=== PATIENT | male | born 1990 | race Caucasian/White ===

== ENCOUNTER 2017-05-15 14:24 | Emergency (ER) | payer OTHER ==
[~2017-05-15] VITALS: Ht 182.9 cm; Wt 109.1 kg
[2017-05-15 14:46] VITALS: BP 160/91; PULSE 89; RESP 12; O2SAT 100
--- NOTE | 2017-05-15 14:59 | ED.REPORT ---
HPI-Chest Pain Under 40 Date of Service May 15, 2017 ED Provider: Dr. Zapien Pt is a 27 year old male with a hx of HTN presenting to the ED complaining of sharp intermittent chest pain which changes when he sits in different positions. He states that he has a left shoulder chronic injury, and was kayaking and fishing yesterday so he was casting a lot which aggravated it. He states that he did not wake up with chest pain, but after breakfast when he was sitting up he began having the chest pain and felt a twinge in his shoulder. Pain is not exacerbated by walking around. He woke up sleeping on his hands, at the same spot that the chest pain later developed. Denies any other symptoms at this time. Nursing Notes Stated Complaint: CP Chief Complaint: Chest Pain Nursing Notes Reviewed: Yes Allergies: Coded Allergies: lorazepam (Verified Adverse Reaction, Severe, agitated, "made me freak out and thought I was dying", 08/12/16) General Time Seen by MD: 14:58 Chief Complaint Chest pain Hx Obtained From: Patient Arrived By: Walk-in Sudden in Onset?: No Onset Occurred: 1 - 4 hours ago Symptom Duration: Since onset Location: : Chest left Quality: Painful, Sharp Severity: Current: Mild Severity: Maximum: Mild Recent Healthcare: No recent doctor visit, No recent hospitalization Similar Sx Previous: No Past Medical History Past Medical History anxiety Reports: Hypertension Past Surgical History open appendectomy Family History Family history of PA's at a young age Smoking History Never Smoker Social History Alcohol Use: Denies alcohol use Drug Use: Denies drug use Other Social History: Good social support Ambulatory Status Independent Review of Systems Respiratory: Denies: Dyspnea on exertion, Shortness of breath Cardiovascular: Reports: Chest pain Musculoskeletal: Reports: Joint pain (Left shoulder) Complete sys rev & neg: except as marked. Physical Exam Initial Vital Signs Vital Signs (First) Date Time Temp Pulse Resp B/P Pulse Ox O2 Delivery O2 Flow Rate FiO2 05/15/17 14:46 36.9 89 12 160/91 100 Room Air Initial VS: Reviewed Head / Eyes: Atraumatic, Normocephalic, PERRL ENT: Mucous membranes moist, Conjunctiva normal, No scleral icterus Neck: Supple, Non-tender, Full range of motion Abdomen / GI: Soft, Non-tender, No guarding, No rebound, No distention Skin: Warm, Dry, No cyanosis Neurologic: Alert, Oriented, Nonfocal Psychiatric: Mood/affect normal, Behavior normal, Normal thought content General/Constitutional: Awake, Alert, No acute distress, Well appearing Respiratory / Chest: Atraumatic, Breath sounds NL, Breath sounds = bilat, No respiratory distress Focal left chest wall tenderness. Reproducible chest pain with palpation and movement with left shoulder. Cardiovascular: Heart rate NL, Regular rhythm, Heart sounds NL Upper Extremity / MS: No deformity, Neurologic intact, Vascular intact Audible clicking with ROM of left shoulder Interpretation & Diagnostics ECG Interpretation ECG Interpretation: Sinus tachycardia at 103. No ST changes. Time: 15:06 Interpreted by: ED physician X-Ray Chest Interpretation Chest Xray Interpretation: IMPRESSION: No acute cardiopulmonary disease. Dictated by: Refugio Hernandez M.D. on 05/15/2017 at 14:37 View: Portable, 1 view Interpretation / Wet Read by: Interpret - Radiologist Re-Eval/Medical Decision Med Decision/Clinical Course Focal reproducible chest wall pain with a reassuring EKG and chest x-ray. Discussed with the patient. I offered lab tests, the patient declined. Return and follow-up precautions given Re-Evaluation/Progress : Time of Eval: 15:37 Patient Status: Condition improved Re-Evaluation/Progress Note: Pt declines labs. Discussed plan for discharge. Pt understands and agrees. Counseled Regarding: Diagnosis, Lab results, Need for follow-up, When/why to return to ED Discharge & Departure Primary Impression: Chest pain Chest pain type: unspecified Qualified Code: R07.9 - Chest pain, unspecified Disposition: Home Discharge Condition All VS Reviewed: Yes Condition: Improved Patient Instructions: Angina (ED) Additional Instructions: Your symptoms unrelated to injuring your shoulder and sleeping on your hands. Use Tylenol and ibuprofen as needed for symptoms. If you develop persistent chest pain with shortness of breath or other signs or symptoms of heart attack he should return to the ER. Referrals: Rudolph Tovar MD (PCP) Scribe Attestation Portions of this note were transcribed by Libra Cain. I, Dr. Zapien personally performed the history, physical exam and medical decision-making; I reviewed and confirmed the accuracy of the information in the transcribed note. Signed by: Wendy Mccollum, 05/15/17 at 1609. copies to: Rudolph Tovar MD, Timothy S DO May 15, 2017 14:58 LIBRA CIAN May 15, 2017 15:34
--- NOTE | 2017-05-15 15:39 | DRSVH ---
PROCEDURE: X-RAY CHEST ONE VIEW, PORTABLE ([id number]) INDICATIONS: 27 year-old male with chest pain. TECHNIQUE: One view of the chest was acquired. COMPARISON: [facility], CR, XR CHEST 1VW (PORTABLE), 08/12/2016, 17:47. FINDINGS: Surgical changes and devices: None. Lungs and pleura: No pleural effusions or pneumothorax. Lungs are clear. Mediastinum: Mediastinal contours appear normal. Heart size is normal. Bones and chest wall: No suspicious bony lesions. Overlying soft tissues appear unremarkable. IMPRESSION: No acute cardiopulmonary disease. Dictated by: Refugio Hernandez M.D. on 05/15/2017 at 14:37 Approved by: Refugio Hernandez M.D. on 05/15/2017 at 14:38
[2017-05-15 15:45] VITALS: BP 137/82; PULSE 86; RESP 20; O2SAT 97
[2017-05-15 15:47] VITALS: BP 137/82; PULSE 86; RESP 20; O2SAT 97
== END 2017-05-15 15:48 | disposition home or self-care (01) ==
LOC: SED 14:24
DX: R07.89 Other chest pain (principal); I10 Essential (primary) hypertension; F41.9 Anxiety disorder, unspecified; Z88.5 Allergy status to narcotic agent